=== PATIENT | female | born 1965 | race Caucasian/White ===

== ENCOUNTER 2017-04-03 14:01 | Emergency (ER) | payer SELFPAY ==
[~2017-04-03] VITALS: Ht 157.5 cm; Wt 65.9 kg
[2017-04-03 14:28] LABS: GLUCOSE,POINT OF CARE 257 MG/DL (70-110)
[2017-04-03] MEDS ORDERED: [UNRECOGNIZED DRUG - REMARK] PO (14:32)
[2017-04-03 14:56] VITALS: BP 138/96
[2017-04-03] MEDS ORDERED: IBUPROFEN 800 MG TABLET PO ONE (15:45)
== END 2017-04-03 16:00 | disposition home or self-care (01) ==
LOC: EMS 14:03
DX: S80.12XA Contusion of left lower leg, initial encounter (principal); W20.8XXA Other cause of strike by thrown, projected or falling object, initial encounter; Y93.89 Activity, other specified; Y92.512 Supermarket, store or market as the place of occurrence of the external cause; Y99.8 Other external cause status; E11.9 Type 2 diabetes mellitus without complications
CPT/HCPCS: 82962; 99284